=== PATIENT | male | born 1955 | race Caucasian/White ===

== ENCOUNTER → 2017-04-27 | Outpatient (CLI) | payer OTHER ==
[~2017-04-27] MED LIST: LOSA1TAB38 PO; LOVA20TA4 PO; TAMS0.4C38 PO; TPRSR25 PO
[2017-04-27 16:01] LABS: BLOOD UREA NITROGEN 21 mg/dl (7-18); BUN/CREATININE RATIO 18.9 (10-20); CREATININE 1.12 mg/dl (0.60-1.40); GLUCOSE 307 mg/dl (70-99)
[2017-04-27 16:11] LABS: BETA-HYDROXYBUTYRATE 1.94 mg/dL (0.2-2.81); PROSTATE SPECIFIC ANTIGEN 0.873 ng/ml (0.000-4.000)
[2017-04-28 06:10] LABS: ESTIMATED AVERAGE GLUCOSE 272 mg/dl; HA1C FLAG Normal (Normal)
== END | disposition home or self-care (01) ==
LOC: C.LAB1850 14:31
PROVIDERS: ATTEND Physician Assistant
DX: N36.1 Urethral diverticulum (principal); R73.09 Other abnormal glucose

== ENCOUNTER → 2017-09-29 | Outpatient (CLI) | payer OTHER ==
[2017-09-29 09:37] LABS: BASO % 0.7 %; BASO ABS # 0.05 K/uL (0-0.2); EOS % 1.3 %; EOS ABS # 0.09 K/uL (0-0.5); HEMATOCRIT 44.7 % (42-52); HEMOGLOBIN 15.7 g/dL (14.0-18.0); IG# 0.01 K/uL (0.00-0.02); LYMPH % 31.4 %; LYMPH ABS # 2.11 K/uL (1.2-3.4); MEAN CELL VOLUME 84.5 fL (80-100); MEAN CORPUSCULAR HEMOGLOBIN 29.7 pg (25-34); MEAN CORPUSCULAR HGB CONC 35.1 g/dl (32-36); MEAN PLATELET VOLUME 10.2 fL (7.4-10.4); MONO % 7.9 %; MONO ABS # 0.53 K/uL (0.11-0.59); NEUT % 58.6 %; NEUT ABS # 3.93 K/uL (1.4-6.5); PLATELET COUNT 172 K/uL (130-400); RED CELL DISTRIBUTION WIDTH CV 13.2 % (11.5-14.5); RED CELL DISTRIBUTION WIDTH SD 40.7 fL (36.4-46.3); WHITE BLOOD COUNT 6.72 K/uL (4.8-10.8)
[2017-09-29 09:54] LABS: ALBUMIN 3.7 gm/dl (3.4-5.0); ALT/SGPT 23 U/L (12-78); AST/SGOT 11 U/L (15-37); BLOOD UREA NITROGEN 16 mg/dl (7-18); CALCIUM 9.1 mg/dl (8.5-10.1); CARBON DIOXIDE 25 mmol/L (21-32); CHOLESTEROL 164 mg/dl (0-200); CREATININE 0.96 mg/dl (0.60-1.40); GLUCOSE 98 mg/dl (70-99); POTASSIUM 4.1 mmol/L (3.5-5.1); SODIUM 139 mmol/L (136-145); TOTAL PROTEIN 7.2 gm/dl (6.4-8.2)
[2017-09-29 10:03] LABS: ALKALINE PHOSPHATASE 48 U/L (45-117); LDL CHOLESTEROL CALCULATED 84 mg/dl
[2017-09-29 10:09] LABS: HEMOGLOBIN A1C 5.9 % (4.5-5.6)
== END | disposition home or self-care (01) ==
LOC: C.LAB1850 08:10
PROVIDERS: ATTEND Internal Medicine
DX: E11.9 Type 2 diabetes mellitus without complications (principal); I10 Essential (primary) hypertension